=== PATIENT | male | born 1980 | race Caucasian/White ===

== ENCOUNTER 2017-04-10 18:23 | Emergency (ER) | payer BC ==
[2017-04-10 18:35] VITALS: BP 139/79
--- NOTE | 2017-04-10 18:51 | UC ---
Back Pain HPI - History of Current Complaint Chief Complaint: UCBackPain Stated Complaint: BACK PAIN Time Seen by Provider: 04/10/17 18:30 - Allergies/Home Medications Allergies/Adverse Reactions: Allergies Allergy/AdvReac Type Severity Reaction Status Date / Time No Known Allergies Allergy Verified 04/10/17 18:36 Home Medications: Home Medications predniSONE TAB* [Deltasone TAB*] 40 mg PO DAILY 04/10/17 [History Confirmed 03/19] PMH/Surg Hx/FS Hx/Imm Hx - Surgical History Surgical History: Yes Surgery Procedure, Year, and Place: Septoplasty - Social History Alcohol Use: Occasionally Substance Use Type: None Smoking Status (MU): Never Smoked Tobacco Physical Exam Vital Signs: Initial Vital Signs Temp 97.9 F 04/10/17 18:31 Pulse 81 04/10/17 18:31 Resp 18 04/10/17 18:31 BP 139/79 04/10/17 18:31 Pulse Ox 99 04/10/17 18:31
== END 2017-04-10 19:00 | disposition home or self-care (01) ==
LOC: UCEAST 18:23
DX: M54.9 Dorsalgia, unspecified (principal)
CPT/HCPCS: 99212; G0463

== ENCOUNTER 2017-06-12 18:15 | Emergency (ER) | payer BC ==
[2017-06-12 19:28] VITALS: BP 129/70
--- NOTE | 2017-06-12 20:16 | UC ---
Elbow Pain - HPI Summary HPI Summary: Pt presents with right elbow pain, swelling, and redness. He tells me that he first noticed the elbow symptoms yesterday when he went to place his elbow on the center console in his car. Today seems more swollen and red. Denies specific injury. He has not taken anything for pain. He denies fever, chills, recent illness, SOB, or chest pain. - History of Current Complaint Chief Complaint: UCUpperExtremity Stated Complaint: ELBOW PAIN Time Seen by Provider: 06/12/17 20:16 Hx Obtained From: Patient Onset/Duration: Days Severity Initially: Moderate Severity Currently: Moderate Pain Intensity: 5 Pain Scale Used: 0-10 Numeric Character: Throbbing, Stiffness Aggravating Factor(s): Movement Alleviating Factor(s): Rest - Allergies/Home Medications Allergies/Adverse Reactions: Allergies Allergy/AdvReac Type Severity Reaction Status Date / Time No Known Allergies Allergy Verified 06/12/17 19:28 Home Medications: Home Medications Fexofenadine (NF) [Sade (NF)] 60 mg PO 06/12/17 [History] PMH/Surg Hx/FS Hx/Imm Hx Previously Healthy: Yes - Surgical History Surgical History: Yes Surgery Procedure, Year, and Place: Septoplasty - Family History Known Family History: Positive: None - Social History Occupation: Employed Full-time Lives: With Family Alcohol Use: Occasionally Substance Use Type: None Smoking Status (MU): Never Smoked Tobacco Review of Systems Constitutional: Negative Skin: Other - Redness overlying right elbow Respiratory: Negative Cardiovascular: Negative Gastrointestinal: Negative Neurovascular: Negative Musculoskeletal: Edema - Right elbow, Other: - Right elbow pain Neurological: Negative All Other Systems Reviewed And Are Negative: Yes Physical Exam Triage Information Reviewed: Yes Appearance: Well-Appearing, Well-Nourished Vital Signs: Initial Vital Signs Temp 98.1 F 06/12/17 19:25 Pulse 80 06/12/17 19:25 Resp 16 06/12/17 19:25 BP 129/70 06/12/17 19:25 Pulse Ox 100 06/12/17 19:25 Vital Signs Reviewed: Yes Neck: Positive: Supple, Nontender, No Lymphadenopathy Respiratory: Positive: Chest non-tender, Lungs clear Cardiovascular: Positive: RRR, No Murmur, Pulses Normal Musculoskeletal: Positive: Strength Intact, ROM Intact, Edema @ - Right elbow., Other: - There is FROM of the right elbow, but he does experience mild pain with any motion. TTP over olecranon and superficial skin surrounding elbow. [employer] strength intact and without pain. He is able to pronate and supinate with minimal pain. Neurological: Positive: Alert, Other: - Sensations C4-T1 intact. Skin: Positive: Other - Erythema overlying the elbow extending approx 1cm above and below the olecranon. No open wounds, drainage, or streaking. Elbow Pain Course/Dx - Course Course Of Treatment: Elbow XR: Negative. Suspect olecranon bursitis with potenial overlying cellulitis. Naproxen 500mg BID for bursitis and Bactrim for 7 days. Pt is returning home to the [place], [place] area and requested the number for orthopedic services closer to that area. - Differential Dx/Diagnosis Differential Diagnosis/HQI/PQRI: Bursitis, Cellulitis, Contusion, Fracture ( Closed), Puncture Wound, Sprain, Strain Provider Diagnoses: Olecranon bursitis. Cellulitis Discharge - Discharge Plan Condition: Stable Disposition: HOME Prescriptions: Naproxen TAB* [Naprosyn 250 mg TAB*] 500 mg PO BID PRN #30 tab PRN Reason: Pain Sulfamethox/Trimethoprim DS* [Bactrim DS 800/160 TAB*] 1 tab PO BID #14 tab Patient Education Materials: Elbow Bursitis (ED) Referrals: Rajani Smith MD [Primary Care Provider] - Additional Instructions: If you develop a fever, SOB, chest pain, new or worsening symptoms - please call your PCP or go to the ED. Please Rest and Ice your elbow. If your symptoms persist or worsen greater than one week, please call the number below to schedule a follow up with orthopedics. [facility] [address] [place] [id number] [address]: [phone]
--- NOTE | 2017-06-12 21:14 | RAD ---
HISTORY: Pain, redness, swelling of the right elbow COMPARISONS: None VIEWS: 4, Frontal, lateral, and oblique views of the right elbow FINDINGS: BONE DENSITY: Normal. BONES: There is no displaced fracture. JOINTS: There is no arthropathy. There is no posterior supracondylar fat pad to suggest a joint effusion. ALIGNMENT: There is no dislocation. SOFT TISSUES: Unremarkable. OTHER FINDINGS: None. IMPRESSION: NO ACUTE OSSEOUS INJURY. IF SYMPTOMS PERSIST, RECOMMEND REPEAT IMAGING.
== END 2017-06-12 21:40 | disposition home or self-care (01) ==
LOC: UCEAST 18:15
DX: M70.21 Olecranon bursitis, right elbow (principal); L03.113 Cellulitis of right upper limb
CPT/HCPCS: 99212; G0463

== ENCOUNTER 2019-03-19 06:42 | Day surgery (SDC) | payer BC ==
[~2019-03-19 06:42] MED LIST: Buffered Lidocaine 1% SYRIN* 1 ML/SYRINGE INTRADERM ONE; Famotidine IV* 10 MG/ML 2 ML (20 mg) IV ONE; Lactated Ringers 1000 ML Bag* 1,000 ML IV SCH
[2019-03-19] MEDS ORDERED: ceFAZolin 2 GM PREMIX in ORs 2 GM/50 ML BAG ONE (07:02)
[2019-03-19] MEDS ORDERED: Famotidine IV* 10 MG/ML 2 ML (20 mg) ONE (07:35)
[2019-03-19] MEDS ORDERED: Midazolam* 1 MG/ML 5 ML VIAL (5 MG) ONE (08:44)
[2019-03-19] MEDS ORDERED: Bupivacaine 0.25% SDV PF* 10 ML VIAL INJ ONE (08:50)
[2019-03-19] MEDS ORDERED: fentaNYL* 50 MCG/ML 2 ML VIAL (100 MCG VIAL) ONE ×2 (08:59→09:15)
[2019-03-19] MEDS ORDERED: Ondansetron INJ* 2 MG/ML VIAL ONE (09:03)
[2019-03-19] MEDS ORDERED: Dexamethasone IV* 4 MG/ML 1 ML (4 MG) ONE (09:03)
[2019-03-19] MEDS ORDERED: Ketorolac INJ* 30 MG/ML 1 ML VIAL ONE (09:03)
[2019-03-19] MEDS ORDERED: Propofol* 10 MG/ML 20 ML BTL ONE (09:03)
[2019-03-19] MEDS ORDERED: Lidocaine 2% PF * 5 ML VIAL ONE (09:10)
[2019-03-19] MEDS ORDERED: HYDROmorphone INJ1* 1 MG/ML SYRINGE IV PRN (09:26)
[2019-03-19] MEDS ORDERED: Naloxone* 0.4 MG/ML 1 ML VIAL IV PRN (09:26)
[2019-03-19] MEDS ORDERED: DiMENhydriNATE IV* 50 MG/ML VIAL IV PUSH PRN (09:26)
[2019-03-19] MEDS ORDERED: Acetaminophen IV 1GM/100ML * 1,000 MG/100 ML VIAL IVPB ONE (09:26)
[2019-03-19] MEDS ORDERED: Acetaminophen TAB* 325 MG ONE (10:04)
--- NOTE | 2019-03-19 10:08 | OP ---
Operative Report - Blank - Operative Report Date of Operation: 03/19/19 Note: PATIENT: Carlito Styles DATE OF : 1980 DATE OF SURGERY: 03/19/2019 SURGEON: Aleksandr George MD ODD JOB WORKER: HELEN Love, whos assistance was necessary for positioning, retraction, help with instrumentation, and closure. ANESTHESIOLOGIST: Dr. Pascual PREOPERATIVE DIAGNOSIS: Right knee medial meniscus tear POSTOPERATIVE DIAGNOSIS: Right knee medial meniscus tear OPERATION: Right knee arthroscopy with partial medial meniscectomy ANESTHESIA: General IMPLANTS: none TOURNIQUET TIME: Less than one hour, with a well-padded thigh tourniquet at 250 mmHg. SPECIMENS: None ESTIMATED BLOOD LOSS: minimal COMPLICATIONS: none STATUS: Stable from the operating room to the recovery room and then home. INDICATIONS FOR PROCEDURE: Carlito sustained a right knee medial meniscus tear with mechanical symptoms. Both operative and non operative treatment alternatives were reviewed. Further, the nature and risks of surgery were reviewed in careful detail, in the office as well as the pre-operative holding area. Our discussions regarding the risks of surgery included, but were not limited to, infection, wound problems, nerve injury, neuroma, RSD, persistent symptoms, blood clot, failure of the surgery, need for further surgery, development of arthritis, and even the remote chance of catastrophic complication. DESCRIPTION OF PROCEDURE: The patient was seen in the preoperative holding unit and informed written consent was obtained. The appropriate extremity was marked. The patient was then brought to the operating room and carefully positioned on the operating room table. Anesthesia was induced. All bony prominences were padded with great care. A well-padded thigh tourniquet was placed. A chlorhexidine based pre- scrub was performed followed by a chloraprep prep and drape in standard sterile fashion. A surgical safety pause was then conducted in which we confirmed the appropriate patient, extremity, planned procedure, availability of equipment, indication and administration of prophylactic antibiotics, and DVT prophylaxis in the form of a compression boot on the non-surgical extremity. I began with an Esmarch exsanguination of the limb and inflated the tourniquet. I insufflated the joint by injecting sterile saline. I began by making a standard anterolateral knee arthroscopy portal. The arthroscope was inserted into the knee joint and a diagnostic arthroscopy was performed. Then under direct visualization an anteromedial arthroscopy portal was made. I introduced a probe into the joint. This was used to probe the medial meniscus tear. It was a complex, displaced, horizontal bucket-handle tear. The tissue had extensive fraying and was of poor quality. A biter and oscillating shaver were used to debride the meniscal tear back to a stable rim. The cartilage was of good quality throughout the joint. The ACL and PCL were intact. The lateral meniscus was without tear. I then performed an extensive irrigation of the joint while running the shaver in each of the knee compartments to remove any loose debris. Once thoroughly irrigated and debrided , I suctioned the fluid out of the joint. The arthroscopy portals were then closed utilizing 3-0 nylon. A sterile dressing was then applied. The patient was then awakened from anesthesia and transferred to the recovery room in stable condition. There were no complications. All needle and sponge counts were correct at the end of the case. ATTESTATION: I attest I was present and scrubbed and performed the critical portions of the procedure myself. POSTOPERATIVE PLAN: The plan is for weight-bearing as tolerated with crutches. Follow-up will be in 2 weeks for likely suture removal.
[2019-03-19] MEDS ORDERED: oxyCODONE TAB* 5 MG TAB ONE (10:48)
[2019-03-19 10:50] VITALS: BP 133/78
== END 2019-03-19 11:24 | disposition home or self-care (01) ==
LOC: OR 06:42
PROVIDERS: ATTEND Orthopaedic Surgery
DX: S83.221A Peripheral tear of medial meniscus, current injury, right knee, initial encounter (principal); M25.461 Effusion, right knee; X50.0XXA Overexertion from strenuous movement or load, initial encounter; Y93.B3 Activity, free weights; Y92.9 Unspecified place or not applicable
CPT/HCPCS: A9270-GY; J0690; J1100; J1885; J2250; J2405; J2704; J3010; J3490